=== PATIENT | male | born 1950 | race Caucasian/White ===

== ENCOUNTER 2021-02-05 14:13 | Emergency (ER) | payer MEDICARE, BC ==
[2021-02-05] MEDS ORDERED: MORPHINE SULFATE 4 MG INJ IM ONE (14:43)
[2021-02-05] MEDS ORDERED: Cyclobenzaprine 10 MG PO ONE (14:44)
[2021-02-05] MEDS ORDERED: Cyclobenzaprine 10 MG ONE (15:03)
[2021-02-05] MEDS ORDERED: MORPHINE SULFATE 4 MG INJ ONE (15:03)
--- NOTE | 2021-02-05 15:47 | ERPHSYRPT ---
- History of Present Illness Time Seen by Provider: 02/05/21 14:42 Source: patient Exam Limitations: no limitations Patient Subjective Stated Complaint: "my back still hurts." Triage Nursing Assessment: Lower chronic back pain radiating to the left leg. Recent MRI performed. Positive straight leg test. Denied recent injuyr/illness Physician History: 70 years old with a history of chronic low back pain presented in the ER with chief complaint of left lower back pain worsening for the last 2 weeks. Patient normally walks with crutches, almost 2 weeks ago patient was trying to get out of the bathtub and something went wrong and he had a sharp pain in the left lower back and since then pain is not having much improvement. He was seen outpatient by primary care and has an MRI done which according to patient showed pinched nerve and was evaluated by neurosurgery who started him on pain medication [place] 10 and recommended possible surgical intervention later some time. Patient denies any weakness in left lower extremity, no loss of bowel or bladder control. Pain is similar to previous episodes but is not improving. Patient had MRI done 2 days ago and pain is same as it was last week. Denies any new fall or trauma. Today he took his pain pill but pain was not improving and decided to come to ER for rapid relief of pain. No tingling or numbness in lower extremities. Timing/Duration: week(s) (2), gradual onset, worse Method of Injury: twisted Quality: sharp Back Pain Location: lumbar spine, paraspinous muscles Back Pain Radiation: buttocks Severity of Pain-Max: severe Severity of Pain-Current: severe Modifying Factors: Improves With: immobilization, pain medication. Worsens With: movement Associated Symptoms: lower back pain, muscle spasms, No urinary incontinence, No weakness, No sensory/motor loss Previous symptoms: same symptoms as today Hx Tetanus, Diphtheria Vaccination/Date Given: Yes Hx Influenza Vaccination/Date Given: No Travel Risk - International Travel Have you traveled outside of the country in past 3 weeks: No - Coronavirus Screening Are you exhibiting any of the following symptoms?: No Close contact with a COVID-19 positive Pt in past 14-21 Days: No - Review of Systems Constitutional: No Symptoms Eyes: No Symptoms Ears, Nose, & Throat: No Symptoms Respiratory: No Symptoms Cardiac: No Symptoms Abdominal/Gastrointestinal: No Symptoms Genitourinary Symptoms: No Symptoms Musculoskeletal: Back Pain Skin: No Symptoms Neurological: No Symptoms Psychological: No Symptoms Endocrine: No Symptoms Hematologic/Lymphatic: No Symptoms - Past Medical History Pertinent Past Medical History: Yes Neurological History: No Pertinent History Cardiac History: Hypertension Respiratory History: No Pertinent History Endocrine Medical History: Diabetes Type II Musculoskeletal History: Osteoarthritis - Social History Smoking Status: Never smoker Exposure to second hand smoke: No Drug Use: none Patient Lives Alone: No - Nursing Vital Signs Nursing Vital Signs: Initial Vital Signs Temperature 98.4 F 02/05/21 14:13 Pulse Rate 72 02/05/21 14:13 Respiratory Rate 16 02/05/21 14:13 Blood Pressure 135/108 02/05/21 14:13 O2 Sat by Pulse Oximetry 98 02/05/21 14:13 Pain Scale Pain Intensity 10 - Physical Exam General Appearance: no apparent distress Eye Exam: eyes nml inspection Ears, Nose, Throat Exam: pharynx normal Neck Exam: normal inspection, non-tender, supple, full range of motion Respiratory Exam: normal breath sounds, lungs clear Cardiovascular Exam: regular rate/rhythm, normal heart sounds Gastrointestinal Exam: soft, normal bowel sounds, No tenderness Back Exam: normal inspection, vertebral tenderness (Positive straight leg raising test on the left at 30 degrees), No CVA tenderness Extremity Exam: normal inspection, normal range of motion, pelvis stable Neurologic Exam: alert, oriented x 3, cooperative, sensation nml, No motor deficits, No sensory deficit Skin Exam: normal color SpO2 Interpretation: normal SpO2: 93 O2 Delivery: Room Air Ordered Tests: Medication Summary Discontinued Medications Generic Name Dose Route Start Last Admin Trade Name Pranay PRN Reason Stop Dose Admin Cyclobenzaprine HCl 10 mg 02/05/21 14:44 02/05/21 15:08 Cyclobenzaprine 10 Mg PO 02/05/21 14:45 10 mg STAT ONE Administration Cyclobenzaprine HCl Confirm 02/05/21 15:03 Cyclobenzaprine 10 Mg Administered 02/05/21 15:04 Dose 10 mg .ROUTE .STK-MED ONE Morphine Sulfate 4 mg 02/05/21 14:43 02/05/21 15:08 Morphine Sulfate 4 Mg Inj IM 02/05/21 14:44 4 mg STAT ONE Administration Morphine Sulfate Confirm 02/05/21 15:03 Morphine Sulfate 4 Mg Inj Administered 02/05/21 15:04 Dose 4 mg .ROUTE .[employer] ONE - Progress Progress: improved Progress Note: 02/05/21 15:52 He is given morphine and Flexeril orally for symptomatic relief, on reevaluation pain is much improved. He has negative neuro exam in lower extremities except for positive straight leg raising test. With his recent MRI done 2 days ago and pain similar to that I do not think patient needs another imaging study. I have tried to obtain imaging results but they are not back yet. Patient is feeling better on reevaluation. I would continue with [place] and will add low-dose Flexeril for few days to take as needed and outpatient follow-up. Discussed sig ns symptoms of worsening needing return to ER which patient seems understanding. Stable for discharge. Counseled pt/family regarding: diagnosis, need for follow-up - Departure Departure Disposition: Home Clinical Impression: Acute exacerbation of chronic low back pain Condition: Stable Critical Care Time: No Referrals: DOCTOR,NO FAMILY [Primary Care Provider] - Instructions: Low Back Pain (DC), Sciatica (DC) Additional Instructions: Take pain medications which you have at home as recommended. Use crutches all the time for ambulation to avoid a fall. Follow-up with your primary care and neurosurgeon for reevaluation. Return to ER for increasing pain, numbness tingling weakness of lower extremities/loss of bowel or bladder control. Prescriptions: Cyclobenzaprine HCl [Flexeril] 5 mg PO TID PRN 7 Days #15 tablet PRN Reason: Muscle Spasms
[2021-02-05 16:32] VITALS: BP 159/85; PULSE 67; O2SAT 98
== END 2021-02-05 16:45 | disposition home or self-care (01) ==
LOC: ED 14:13
DX: M54.5 Low back pain (principal); I10 Essential (primary) hypertension; E11.9 Type 2 diabetes mellitus without complications; Z79.891 Long term (current) use of opiate analgesic
CPT/HCPCS: 96372; 99283; 99291; J2270; A9270-GY